=== PATIENT | male | born 1975 | race Hispanic/Latino ===

== ENCOUNTER 2019-04-28 07:06 | Emergency (ER) | payer SELFPAY ==
[2019-04-28] MEDS ORDERED: NA CHLORIDE 0.9% 1,000 ML ONE (07:25)
[2019-04-28] MEDS ORDERED: PROMETHAZINE 25 MG/ML VIAL ONE (07:25)
[2019-04-28 07:59] LABS: Absolute Lymphocytes (CBC) 1.1 K/uL (0.7-4.9); Basophils % 0.9 % (0-1.3); Hematocrit 46.9 % (39.6-49.0); Lymphocytes % 10.3 % (15.3-44.8); MPV 8.4 fL (7.6-11.3); RBC Red Blood Cell Count 5.14 M/uL (4.33-5.43)
[2019-04-28 08:06] LABS: ALT/SGPT 22 U/L (12-78); AST/SGOT 13 U/L (15-37); Albumin 4.1 g/dL (3.4-5.0); Alkaline Phosphatase 148 U/L (45-117); BUN Blood Urea Nitrogen 10 mg/dL (7-18); Bicarbonate 26 mmol/L (21-32); Bilirubin Direct 0.2 mg/dL (0-0.2); Bilirubin Total 0.7 mg/dL (0.2-1.0); Glucose Level 275 mg/dL (74-106); Lipase 114 U/L (73-393); Potassium 3.8 mmol/L (3.5-5.1); Protein, Total 8.2 g/dL (6.4-8.2); Sodium Level 138 mmol/L (136-145)
[2019-04-28 08:18] LABS: Urine Blood NEGATIVE (NEG); Urine Glucose 2+ (NEG); Urine Protein 1+ (NEG); Urine Specific Gravity 1.015 (1.005-1.030); Urine pH 8.5 (5.0-7.0)
[2019-04-28 08:27] LABS: Urine Bacteria <20 /HPF (NONE SEEN); Urine Culture Reflex Order NOT NEEDED; Urine Mucus SLIGHT /HPF (NONE SEEN); Urine RBC <5 /HPF (NONE SEEN)
--- NOTE | 2019-04-28 08:42 | RAD REPORT ---
EXAM DESCRIPTION: CTAbdomen Pelvis W Contrast - 04/28/2019 8:26 am CLINICAL HISTORY: Abdominal pain. ABD PAIN COMPARISON: <Comparisons> TECHNIQUE: Biphasic CT imaging of the abdomen and pelvis was performed with 100 ml non-ionic IV cont rast. All CT scans are performed using dose optimization technique as appropriate and may include automated exposure control or mA/KV adjustment according to patient size. FINDINGS: The lung bases are clear. The liver demonstrates fatty infiltration. The spleen, pancreas, adrenal glands and kidneys are withi n normal limits. No bowel obstruction, free air, free fluid or abscess. Moderate fecal retention in the colon. Mild mu cosal thickening of the right colon is seen which could indicate a mild right-sided colitis. The appe ndix is normal. No evidence of significant lymphadenopathy. No suspicious bony findings. IMPRESSION: Mild nonspecific right-sided colitis is possible.
[2019-04-28] MEDS ORDERED: FENTANYL CITR 100 MCG/2 ML ONE (09:01)
--- NOTE | 2019-04-28 09:06 | EDPHYS ---
Physician Documentation [facility] Name: Red Mckeon Age: 43 yrs Sex: Male : 1975 Arrival Date: 04/28/2019 Time: 07:10 Bed 20 Private MD: ED Physician Johny Gonzalez HPI: 04/28 07:18 This 43 yrs old Male presents to ER via Unassigned with complaints of snw Abdominal Pain, Vomiting. 07:18 The patient presents with abdominal pain in the left lower quadrant. Onset: The snw symptoms/episode began/occurred suddenly, at 03:00. The symptoms do not radiate. Associated signs and symptoms: Pertinent positives: nausea and vomiting. The symptoms are described as crampy, intermittent. Severity of pain: At its worst the pain was moderate in the emergency department the pain has improved. The patient has not experienced similar symptoms in the past. The patient has not recently seen a physician. 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 - Social history:: Smoking status: Patient uses tobacco products, smokes one pack cigarettes per day. - Ebola Screening: : Patient negative for fever greater than or equal to 101.5 degrees Fahrenheit, and additional compatible Ebola Virus Disease symptoms Patient denies exposure to infectious person Patient denies travel to an Ebola-affected area in the 21 days before illness onset No symptoms or risks identified at this time. ROS: 07:18 Constitutional: Negative for fever, chills, and weight loss, Eyes: Negative for injury, snw pain, redness, and discharge, ENT: Negative for injury, pain, and discharge, Neck: Negative for injury, pain, and swelling, Cardiovascular: Negative for chest pain, palpitations, and edema, Respiratory: Negative for shortness of breath, cough, wheezing, and pleuritic chest pain, Back: Negative for injury and pain, : Negative for injury, bleeding, discharge, and swelling, MS/Extremity: Negative for injury and deformity, Skin: Negative for injury, rash, and discoloration, Neuro: Negative for headache, weakness, numbness, tingling, and seizure. 07:18 Abdomen/GI: Positive for abdominal pain, nausea and vomiting. Exam: 07:17 Constitutional: This is a well developed, well nourished patient who is awake, alert, snw and in no acute distress. Head/Face: Normocephalic, atraumatic. Eyes: Pupils equal round and reactive to light, extra-ocular motions intact. Lids and lashes normal. Conjunctiva and sclera are non-icteric and not injected. Cornea within normal limits. Periorbital areas with no swelling, redness, or edema. ENT: Nares patent. No nasal discharge, no septal abnormalities noted. Tympanic membranes are normal and external auditory canals are clear. Oropharynx with no redness, swelling, or masses, exudates, or evidence of obstruction, uvula midline. Mucous membranes moist. Neck: Trachea midline, no thyromegaly or masses palpated, and no cervical lymphadenopathy. Supple, full range of motion without nuchal rigidity, or vertebral point tenderness. No Meningismus. Chest/axilla: Normal chest wall appearance and motion. Nontender with no deformity. No lesions are appreciated. Cardiovascular: Regular rate and rhythm with a normal S1 and S2. No gallops, murmurs, or rubs. Normal PMI, no JVD. No pulse deficits. Respiratory: Lungs have equal breath sounds bilaterally, clear to auscultation and percussion. No rales, rhonchi or wheezes noted. No increased work of breathing, no retractions or nasal flaring. Back: No spinal tenderness. No costovertebral tenderness. Full range of motion. Skin: Warm, dry with normal turgor. Normal color with no rashes, no lesions, and no evidence of cellulitis. MS/ Extremity: Pulses equal, no cyanosis. Neurovascular intact. Full, normal range of motion. Neuro: Awake and alert, GCS 15, oriented to person, place, time, and situation. Cranial nerves II-XII grossly intact. Motor strength 5/5 in all extremities. Sensory grossly intact. Cerebellar exam normal. Normal gait. Psych: Awake, alert, with orientation to person, place and time. Behavior, mood, and affect are within normal limits. 07:17 Abdomen/GI: Inspection: abdomen appears normal, Bowel sounds: normal, in all quadrants, Palpation: mild abdominal tenderness, in the left lower quadrant. Vital Signs: 07:22 BP 176 / 89; Pulse 64; Resp 18; Temp 98.1; Pulse Ox 100% on R/A; Weight 79.38 kg; em Height 5 ft. 11 in. (180.34 cm); Pain 5/10; 08:15 BP 162 / 92; Pulse 95; Resp 18; Pulse Ox 99% on R/A; Pain 3/10; em 09:05 BP 168 / 86; Pulse 88; Resp 16; Pulse Ox 99% on R/A; Pain 4/10; em 07:22 Body Mass Index 24.41 (79.38 kg, 180.34 cm) em MDM: 07:16 Patient medically screened. snw 09:07 Data reviewed: vital signs, nurses notes. Data interpreted: Pulse oximetry: on room air snw is 99 %. Interpretation: normal. Counseling: I had a detailed discussion with the patient and/or guardian regarding: the historical points, exam findings, and any diagnostic results supporting the discharge/admit diagnosis, the presence of at least one elevated blood pressure reading (>120/80) during this emergency department visit, lab results, radiology results, the need for outpatient follow up, to return to the emergency department if symptoms worsen or persist or if there are any questions or concerns that arise at home. Special discussion: Based on the patient's Hx, exam, and Dx evaluation, there is no indication for emergent surgery or inpatient Tx. It is understood by the patient/guardian that if the Sx's persist or worsen they need to return immediately for re-evaluation. Based on the history and exam findings, there is no indication for further emergent testing or inpatient evaluation. I discussed with the patient/guardian the need to see the primary care provider for further evaluation of the symptoms. 04/28 07:17 Order name: Basic Metabolic Panel; Complete Time: 08:06 snw 04/28 07:17 Order name: CBC with Diff; Complete Time: 08:06 snw 04/28 07:17 Order name: Creatinine for Radiology; Complete Time: 08:06 snw 04/28 07:17 Order name: Hepatic Function; Complete Time: 08:06 snw 04/28 07:17 Order name: Lipase; Complete Time: 08:06 snw 04/28 07:17 Order name: Urine Microscopic Only; Complete Time: 08:32 snw 04/28 07:17 Order name: IV Saline Lock; Complete Time: 07:19 snw 04/28 07:17 Order name: Labs collected and sent; Complete Time: 07:19 snw 04/28 07:17 Order name: Urine Dipstick-Ancillary (obtain specimen); Complete Time: 08:11 snw 04/28 08:07 Order name: CT Abd/Pelvis - IV Contrast Only; Complete Time: 08:48 snw 04/28 08:12 Order name: Urine Dipstick--Ancillary (enter results); Complete Time: 08:22 eb Administered Medications: 07:30 Drug: NS 0.9% 1000 ml Route: IV; Rate: 1 bolus; Site: left antecubital; iw 08:34 Follow up: IV Status: Completed infusion; IV Intake: 1000ml em 07:30 Drug: Phenergan 12.5 mg Route: IVP; Site: left antecubital; iw 07:55 Follow up: Response: No adverse reaction; Nausea is decreased em 09:05 Drug: fentaNYL (PF) 25 mcg Route: IVP; Site: left antecubital; iw 09:24 Follow up: Response: No adverse reaction; Pain is decreased em Disposition: 15:08 Co-signature as Attending Physician, Johny Gonzalez MD I agree with the assessment and kdr plan of care. Disposition: 04/28/19 09:06 Discharged to Home. Impression: Enteritis, Nausea and vomiting. - Condition is Stable. - Discharge Instructions: Food Choices to Help Relieve Diarrhea, Adult, Clear Liquid Diet, Adult, Hyperglycemia, Nausea and Vomiting, Adult, Viral Gastroenteritis, Adult, Rehydration, Adult. - Prescriptions for promethazine 25 mg Oral Tablet - take 1 tablet by ORAL route every 6 hours As needed; 20 tablet. - Work release form, Medication Reconciliation Form, Thank You Letter, Antibiotic Education, Prescription Opioid Use form. - Follow up: Emergency Department; When: As needed; Reason: Worsening of condition. Follow up: Private Physician; When: 2 - 3 days; Reason: Recheck today's complaints, Continuance of care, Re-evaluation by your physician. Signatures: Dispatcher [facility] Johny Squires MD MD kdr Therrien, Shelly, MORNING NEWS PRODUCER-C MORNING NEWS PRODUCER-Csnw Kevin Mancera, GINNER HELPER GINNER HELPER em Mikala Ferrer RN RN iw Corrections: (The following items were deleted from the chart) 09:24 09:06 04/28/2019 09:06 Discharged to Home. Impression: Enteritis; Nausea and vomiting. em Condition is Stable. Forms are Medication Reconciliation Form, Thank You Letter, Antibiotic Education, Prescription Opioid Use. Follow up: Emergency Department; When: As needed; Reason: Worsening of condition. Follow up: Private Physician; When: 2 - 3 days; Reason: Recheck today's complaints, Continuance of care, Re-evaluation by your physician. snw
--- NOTE | 2019-04-28 09:06 | ER ---
Nurse's Notes [facility] Name: Red Mckeon Age: 43 yrs Sex: Male : 1975 Arrival Date: 04/28/2019 Time: 07:10 Bed 20 Private MD: Diagnosis: Enteritis;Nausea and vomiting Presentation: 04/28 07:19 Presenting complaint: Patient states: started 0300 N/V this morning with cold sweats em and umbilical pain, unknown fever, denies diarrhea. Transition of care: patient was not received from another setting of care. Onset of symptoms was April 28, 2019. Risk Assessment: Do you want to hurt yourself or someone else? Patient reports no desire to harm self or others. Initial Sepsis Screen: Does the patient meet any 2 criteria? No. Patient's initial sepsis screen is negative. Does the patient have a suspected source of infection? No. Patient's initial sepsis screen is negative. Care prior to arrival: None. 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 - Social history:: Smoking status: Patient uses tobacco products, smokes one pack cigarettes per day. - Ebola Screening: : Patient negative for fever greater than or equal to 101.5 degrees Fahrenheit, and additional compatible Ebola Virus Disease symptoms Patient denies exposure to infectious person Patient denies travel to an Ebola-affected area in the 21 days before illness onset No symptoms or risks identified at this time. Screenin:22 Abuse screen: Denies threats or abuse. Nutritional screening: No deficits noted. em Tuberculosis screening: No symptoms or risk factors identified. Fall Risk None identified. Assessment: 07:22 General: Appears in no apparent distress. comfortable, Behavior is calm, cooperative, em Reports feeling ill for 0-12 hours, Denies fever. Pain: Complains of pain in abdomen Pain currently is 5 out of 10 on a pain scale. Pain began 4 hours ago. Neuro: Level of Consciousness is awake, alert, obeys commands, Oriented to person, place, time, situation, Appropriate for age. Cardiovascular: Capillary refill < 3 seconds Patient's skin is warm and dry. Respiratory: Airway is patent Respiratory effort is even, unlabored, Respiratory pattern is regular, symmetrical. GI: Abdomen is flat, Bowel sounds present X 4 quads. Abd is soft X 4 quads Abdomen is tender to palpation in right lower quadrant and left lower quadrant Reports nausea, vomiting, Patient currently denies diarrhea. : Denies burning with urination. Derm: Skin is intact, is healthy with good turgor, Skin is pink, warm \T\ dry. Musculoskeletal: Capillary refill < 3 seconds, Range of motion: intact in all extremities. 08:15 Reassessment: Patient appears in no apparent distress at this time. Patient and/or em family updated on plan of care and expected duration. Pain level reassessed. Patient is alert, oriented x 3, equal unlabored respirations, skin warm/dry/pink. nausea has improved, rates pain 3/10. 08:22 Reassessment: Patient appears in no apparent distress at this time. wheeled to CT via em wheelchair. 09:05 Reassessment: Patient appears in no apparent distress at this time. Patient and/or em family updated on plan of care and expected duration. Pain level reassessed. Patient is alert, oriented x 3, equal unlabored respirations, skin warm/dry/pink. rates pain 4/10 in abdomen, nausea has improved. Vital Signs: 07:22 BP 176 / 89; Pulse 64; Resp 18; Temp 98.1; Pulse Ox 100% on R/A; Weight 79.38 kg; em Height 5 ft. 11 in. (180.34 cm); Pain 5/10; 08:15 BP 162 / 92; Pulse 95; Resp 18; Pulse Ox 99% on R/A; Pain 3/10; em 09:05 BP 168 / 86; Pulse 88; Resp 16; Pulse Ox 99% on R/A; Pain 4/10; em 07:22 Body Mass Index 24.41 (79.38 kg, 180.34 cm) ED Course: 07:10 Patient arrived in ED. mr 07:11 Sugey Magana FNP-C is [facility]. snw 07:11 Johny Gonzalez MD is Attending Physician. snw 07:11 Kevin Mancera LVN is Primary Nurse. em 07:22 Arm band placed on. em 07:22 Patient has correct armband on for positive identification. Placed in gown. Bed in low em position. Call light in reach. Adult w/ patient. Pulse ox on. NIBP on. 07:24 Triage completed. iw 07:30 Initial lab(s) drawn, by me, sent to lab. Inserted saline lock: 20 gauge in left em antecubital area, using aseptic technique. Blood collected. 08:25 CT Abd/Pelvis - IV Contrast Only In Process Unspecified. EDMS 09:23 No provider procedures requiring assistance completed. IV discontinued, intact, em bleeding controlled, No redness/swelling at site. Pressure dressing applied. Administered Medications: 07:30 Drug: NS 0.9% 1000 ml Route: IV; Rate: 1 bolus; Site: left antecubital; iw 08:34 Follow up: IV Status: Completed infusion; IV Intake: 1000ml em 07:30 Drug: Phenergan 12.5 mg Route: IVP; Site: left antecubital; iw 07:55 Follow up: Response: No adverse reaction; Nausea is decreased em 09:05 Drug: fentaNYL (PF) 25 mcg Route: IVP; Site: left antecubital; iw 09:24 Follow up: Response: No adverse reaction; Pain is decreased em Intake: 08:34 IV: 1000ml; Total: 1000ml. em Outcome: 09:06 Discharge ordered by . snw 09:23 Discharged to home ambulatory, with family. em 09:23 Condition: good 09:23 Discharge instructions given to patient, family, Instructed on discharge instructions, follow up and referral plans. medication usage, Demonstrated understanding of instructions, follow-up care, medications, Prescriptions given X 1. 09:24 Patient left the ED. em Signatures: Dispatcher [employer] EDTX Sugey Magana, TARA CERTIFIED PROFESSIONAL CONTROLLER-Cornelio Marga Quintero mr ManceraKevin LVN LVN em Mikala Ferrer, CAROLINE RN iw
[2019-04-28 09:29] VITALS: TEMP 98.1
[2019-04-28 09:30] VITALS: O2SAT 99
[2019-04-28 09:31] VITALS: BP 168/86
== END 2019-04-28 09:24 | disposition home or self-care (01) ==
LOC: ER 07:06
DX: K52.9 Noninfective gastroenteritis and colitis, unspecified (principal); F17.210 Nicotine dependence, cigarettes, uncomplicated
CPT/HCPCS: 36415; 74177; 80048; 80076; 81003; 81015; 83690; 85025; 96361; 96374; 96375; 99284; J2550; J3010; J7030; Q9967